=== PATIENT | female | born 1995 | race Caucasian/White ===

== ENCOUNTER 2017-04-06 10:53 | Emergency (ER) | payer BC ==
[~2017-04-06] VITALS: Ht 162.6 cm; Wt 53.0 kg
[~2017-04-06 10:53] MED LIST: AVIATAB PO; METR0.7512 VAGINAL
[2017-04-06 10:58] VITALS: BP 128/72; PULSE 76; RESP 16; TEMP 97.7; O2SAT 100
--- NOTE | 2017-04-06 11:28 | PD ---
HPI Chief Complaint: Injury Time Seen by Provider: 11:10 Travel History International Travel<30 days: No Contact w/Intl Traveler<30days: No Traveled to known affect area: No History of Present Illness HPI 22-year-old female presents to the emergency room for evaluation of right 3rd finger pain and swelling after injuring it last night. Patient was falling backwards and got her finger twisted underneath her. She does not remember bending it backwards. He reports immediate pain. She applied ice and then went to bed. Hopefully would be better in the morning but as symptoms persisted , she came to the emergency room. Denies paresthesias. Pain is localized to the right, third proximal phalanx. Worse with range of motion. Denies chronic medical conditions or daily medications. PFSH Past Medical History ADHD: No Weight (Kg): 3 Cancer: No Cardiovascular Problems: No Diabetes: No Diminished Hearing: No Headaches: Yes (OCCASIONAL HEADACHES) Musculoskeletal: Yes (R ARM FX) Psychiatric: Yes Immunizations Current: Yes Migraines: No Seizures: No Thyroid Disease: No Ulcer: No Tetanus Vaccination: Unknown ?: Not Past Surgical History Appendectomy: No Section: No Cholecystectomy: No Ear Surgery: Yes (TUBES) Other Surgery: Yes Social History Alcohol Use: No Tobacco Use: Yes (8 cigarettes per day) Substance Use: No Allergies-Medications (Allergen,Severity, Reaction): Coded Allergies: No Known Allergies (Verified , 04/06/17) Reported Meds & Prescriptions Reported Meds & Active Scripts Active No Active Prescriptions or Reported Medications Review of Systems Except as stated in HPI: all other systems reviewed are Neg Physical Exam Narrative GENERAL: Well-nourished, well-developed female in no acute distress. Afebrile. Ambulatory. SKIN: Focused skin assessment warm/dry. Moderate ecchymosis right third finger. HEAD: Normocephalic. EYES: No scleral icterus. No injection or drainage. NECK: Supple, trachea midline. No JVD or lymphadenopathy. CARDIOVASCULAR: Regular rate and rhythm without murmurs, gallops, or rubs. RESPIRATORY: Breath sounds equal bilaterally. No accessory muscle use. MUSCULOSKELETAL: No cyanosis. Moderate edema of the right third finger. Extreme tenderness to palpation especially over the proximal phalanx. Less than 2 second capillary refill distally. Full range of motion with moderate pain. Data Data Last Documented VS Vital Signs Date Time Temp Pulse Resp B/P Pulse Ox O2 Delivery O2 Flow Rate FiO2 04/06/17 10:58 97.7 76 16 128/72 100 Orders Finger ([id number]) (04/06/17 ) MDM Medical Decision Making Medical Screen Exam Complete: Yes Emergency Medical Condition: Yes Medical Record Reviewed: Yes Differential Diagnosis ike, fracture, strain, dislocation Narrative Course 22-year-old female presents to the emergency room for evaluation of right third finger pain and swelling after injuring it last night. Patient fell, landing on her finger while twisting it. Pain is localized to the proximal phalanx. Physical exam reveals moderate edema and ecchymosis right third finger. Less than 2 second capillary refill distally. X-ray shows middle phalanx fracture. Finger was alberto taped to the fourth digit and patient was discharged with orthopedic instructions. Told to follow up with primary care physician and/or hand surgeon. Told to return for worsening symptoms. She understands and agrees to plan. Diagnosis Primary Impression: Fracture of phalanx of right middle finger Qualified Code: S62.652A - Closed nondisplaced fracture of middle phalanx of right middle finger, initial encounter Referrals: Primary Care Physician Patient Instructions: Finger Fracture (ED), General Instructions Additional Instructions: Rest and drink plenty of fluids. Take ibuprofen with food as directed, as needed for pain. Keep finger alberto taped until follow-up. Elevate and apply ice to the affected area for 20 minutes at a time, as needed for pain and swelling. Follow-up with a primary care physician. Return to the emergency room for worsening symptoms. Med/Other Pt SpecificInfo: Prescription(s) given Scripts No Active Prescriptions or Reported Meds Disposition: 01 DISCHARGE HOME Condition: Stable Stephanie Contreras Apr 06, 2017 11:28
--- NOTE | 2017-04-06 12:25 | RADRPT ---
EXAM DATE/TIME: 04/06/2017 11:51 [facility] COMPARISON: No previous studies available for comparison. INDICATIONS : Fell, right middle finger pain and swelling MEDICAL HISTORY : None. SURGICAL HISTORY : None. ENCOUNTER: Initial ACUITY: 1 day PAIN SCORE: 8/10 LOCATION: Right 3rd finger FINDINGS: There is a complete fracture of the third middle phalanx without any significant angulation or displa cement. There is no intra-articular extension. CONCLUSION: Third middle phalangeal fracture. Verenice Gallardo MD on April 06, 2017 at 12:23 Board Certified Radiologist. This report was verified electronically.
== END 2017-04-06 12:21 | disposition home or self-care (01) ==
LOC: PHEFT 10:53
DX: S62.652A Nondisplaced fracture of middle phalanx of right middle finger, initial encounter for closed fracture (principal); Z72.0 Tobacco use; Z87.39 Personal history of other diseases of the musculoskeletal system and connective tissue; W18.39XA Other fall on same level, initial encounter
CPT/HCPCS: 29130; 73140

== ENCOUNTER 2017-12-10 03:36 | Emergency (ER) | payer BC, OTHER ==
[~2017-12-10] VITALS: Ht 162.6 cm; Wt 60.0 kg
[2017-12-10 03:39] VITALS: BP 119/63; PULSE 89; RESP 18; TEMP 97.7; O2SAT 100
--- NOTE | 2017-12-10 04:10 | PD ---
HPI Chief Complaint: Flank/Kidney Pain Time Seen by Provider: 03:53 Travel History International Travel<30 days: No Contact w/Intl Traveler<30days: No Traveled to known affect area: No History of Present Illness HPI The patient is a 22-year-old female that was arrested for battery with police and, before she was put in the [facility], she complained of right flank pain that is been going on for 2 months. The pain is sharp and a 7/10 in intensity. Muscle movements affect the pain. She smokes a pack and half a day and admits that she drinks too much. He says she drinks usually 2-- 6 packs a day, occasionally 1 sixpack a day of beer. PFSH Past Medical History ADHD: No Weight (Kg): 3 Cancer: No Cardiovascular Problems: No Diabetes: No Diminished Hearing: No Headaches: Yes (OCCASIONAL HEADACHES) Musculoskeletal: Yes (R ARM FX) Psychiatric: Yes Immunizations Current: Yes Migraines: No Seizures: No Thyroid Disease: No Ulcer: No ?: Unknown LMP: 12/08/17 Past Surgical History Appendectomy: No Section: No Cholecystectomy: No Ear Surgery: Yes (TUBES) Other Surgery: Yes Social History Alcohol Use: No Tobacco Use: Yes (8 cigarettes per day) Substance Use: No Allergies-Medications (Allergen,Severity, Reaction): Coded Allergies: No Known Allergies (Verified Allergy, Unknown, 12/10/17) Reported Meds & Prescriptions Reported Meds & Active Scripts Active No Active Prescriptions or Reported Medications Review of Systems Except as stated in HPI: all other systems reviewed are Neg Physical Exam Narrative GENERAL: The patient is alert, oriented 3, cooperative but does smell strongly of beer. She does not appear to be clinically intoxicated. Her vital signs are normal. SKIN: Focused skin assessment warm/dry. No needle tracks nor wrist slash banuelos are present. HEAD: Atraumatic. Normocephalic. EYES: Pupils equal and round. No scleral icterus. No injection or drainage. ENT: No nasal bleeding or discharge. Mucous membranes pink and moist. NECK: Trachea midline. No JVD. CARDIOVASCULAR: Regular rate and rhythm. No murmur appreciated. RESPIRATORY: No accessory muscle use. Clear to auscultation. Breath sounds equal bilaterally. GASTROINTESTINAL: Abdomen soft, with tenderness to direct palpation in the right flank posteriorly, nondistended. Hepatic and splenic margins not palpable. No guarding or rebound is present. Most of the tenderness appears to be around the right posterior ribs inferiorly. MUSCULOSKELETAL: No obvious deformities. No clubbing. No cyanosis. No edema. NEUROLOGICAL: Awake and alert. No obvious cranial nerve deficits. Motor grossly within normal limits. Normal speech. PSYCHIATRIC: Appropriate mood and affect; insight and judgment normal. Data Data Last Documented VS Vital Signs Date Time Temp Pulse Resp B/P (MAP) Pulse Ox O2 Delivery O2 Flow Rate FiO2 12/10/17 04:15 100 Room Air 12/10/17 03:39 97.7 89 18 119/63 (81) Orders Orders Beta Hcg (Quant/Titer) (12/10/17 04:02) Complete Blood Count With Diff (12/10/17 04:02) Comprehensive Metabolic Panel (12/10/17 04:02) Urinalysis - C+S If Indicated (12/10/17 04:02) Ct Abd/Pel W Iv Contrast(Rout) (12/10/17 04:02) Iv Access Insert/Monitor (12/10/17 04:02) Ecg Monitoring (12/10/17 04:02) Oximetry (12/10/17 04:02) Sodium Chloride 0.9% Flush (Ns Flush) (12/10/17 04:15) Alcohol (Ethanol) (12/10/17 04:10) Urine Culture (12/10/17 04:10) Ed Urine Pregnancytest Poc (12/10/17 04:40) Sodium Chlor 0.9% 1000 Ml Inj (Ns 1000 M (12/10/17 04:45) Iohexol 350 Inj (Omnipaque 350 Inj) (12/10/17 04:57) Labs Laboratory Tests Test 12/10/17 04:10 White Blood Count 11.8 TH/MM3 Red Blood Count 5.49 MIL/MM3 Hemoglobin 16.2 GM/DL Hematocrit 47.4 % Mean Corpuscular Volume 86.3 FL Mean Corpuscular Hemoglobin 29.5 PG Mean Corpuscular Hemoglobin Concent 34.2 % Red Cell Distribution Width 12.5 % Platelet Count 331 TH/MM3 Mean Platelet Volume 8.3 FL Neutrophils (%) (Auto) 62.4 % Lymphocytes (%) (Auto) 27.5 % Monocytes (%) (Auto) 5.3 % Eosinophils (%) (Auto) 2.9 % Basophils (%) (Auto) 1.9 % Neutrophils # (Auto) 7.5 TH/MM3 Lymphocytes # (Auto) 3.2 TH/MM3 Monocytes # (Auto) 0.6 TH/MM3 Eosinophils # (Auto) 0.3 TH/MM3 Basophils # (Auto) 0.2 TH/MM3 CBC Comment DIFF FINAL Differential Comment Urine Collection Type CLEAN CATCH Urine Color YELLOW Urine Turbidity CLEAR Urine pH 5.5 Urine Specific [place] 1.015 Urine Protein NEG mg/dL Urine Glucose (UA) NEG mg/dL Urine Ketones NEG mg/dL Urine Occult Blood TRACE Urine Nitrite NEG Urine Bilirubin NEG Urine Urobilinogen 0.2 MG/DL Urine Leukocyte Esterase NEG Urine WBC 3-5 /hpf Urine WBC Clumps OCC Urine Squamous Epithelial Cells 0-5 /hpf Urine Bacteria RARE /hpf Urine Mucus FEW /lpf Microscopic Urinalysis Comment CULTURE INDICATED Blood Urea Nitrogen 9 MG/DL Creatinine 0.92 MG/DL Random Glucose 90 MG/DL Total Protein 9.2 GM/DL Albumin 4.2 GM/DL Calcium Level 8.8 MG/DL Alkaline Phosphatase 107 U/L Aspartate Amino Transf (AST/SGOT) 23 U/L Alanine Aminotransferase (ALT/SGPT) 23 U/L Total Bilirubin 0.2 MG/DL Sodium Level 141 MEQ/L Potassium Level 4.1 MEQ/L Chloride Level 106 MEQ/L Carbon Dioxide Level 26.2 MEQ/L Anion Gap 9 MEQ/L Estimat Glomerular Filtration Rate 77 ML/MIN Human Chorionic Gonadotropin, Quant LESS THAN 1 MIU/ML Ethyl Alcohol Level 89 MG/DL MDM Medical Decision Making Medical Screen Exam Complete: Yes Emergency Medical Condition: Yes Medical Record Reviewed: Yes Interpretation(s) The complete metabolic profile shows a GFR of 77, total protein of 9.2 but is otherwise unremarkable. The beta-hCG is less than 1 and the alcohol level is 89. The CBC shows a white count of 11,800 with a hemoglobin of 16.2 and hematocrit of 47.4 but is otherwise unremarkable. The urinalysis shows rare bacteria, occasional white cell clumping and culture is indicated. The CT abdomen/pelvis with IV contrast shows no acute inflammatory process and a normal appendix. Differential Diagnosis Urinary stone, pyelonephritis, musculoskeletal pain, alcohol intoxication/abuse Narrative Course The patient likely has musculoskeletal pain. It is reproducible by pressing on the ribs on the right posteriorly. She will be given Motrin 600 mg 3 times daily and is given a shot of Toradol here. Diagnosis Primary Impression: Musculoskeletal pain Additional Impression: Alcohol abuse Additional Instructions: As we discussed, take the Motrin regularly, 1 tablet 3 times daily. Discontinue alcohol and use [facility] if you have difficulty discontinuing alcohol. Med/Other Pt SpecificInfo: Prescription(s) given Scripts Ibuprofen (Ibuprofen) 600 Mg Tab 600 MG PO TID, #33 TAB 0 Refills Prov: Louis Ortiz MD 12/10/17 Disposition: DISCHARGE HOME Condition: Stable Louis Ortiz MD Dec 10, 2017 04:10
[2017-12-10 04:15] VITALS: O2SAT 100
[2017-12-10] MEDS ORDERED: SODIUM CHLORIDE 0.9% FLUSH 10 ML FLUSH IV FLUSH PRN (04:15)
[2017-12-10 04:20] LABS: AUTOMATED NEUTROPHIL # 7.5 TH/MM3 (1.8-7.7); BASOPHIL # 0.2 TH/MM3 (0-0.2); BASOPHIL % 1.9 % (0.0-2.0); EOSINOPHIL # 0.3 TH/MM3 (0-0.4); EOSINOPHIL % 2.9 % (0.0-4.0); HEMATOCRIT 47.4 % (35.0-46.0); HEMOGLOBIN 16.2 GM/DL (11.6-15.3); LYMPH % 27.5 % (9.0-44.0); LYMPHOCYTE # 3.2 TH/MM3 (1.0-4.8); MEAN CELL VOLUME 86.3 FL (80.0-100.0); MEAN CORPUSCULAR HEMOGLOBIN 29.5 PG (27.0-34.0); MEAN CORPUSCULAR HGB CONC 34.2 % (32.0-36.0); MEAN PLATELET VOLUME 8.3 FL (7.0-11.0); MONO % 5.3 % (0.0-8.0); MONOCYTE # 0.6 TH/MM3 (0-0.9); NEUT % 62.4 % (16.0-70.0); PLATELET COUNT 331 TH/MM3 (150-450); RED BLOOD COUNT 5.49 MIL/MM3 (4.00-5.30); RED CELL DISTRIBUTION WIDTH 12.5 % (11.6-17.2); WHITE BLOOD COUNT 11.8 TH/MM3 (4.0-11.0)
[2017-12-10 04:27] LABS: BILIRUBIN, URINE NEG (NEG); BLOOD, URINE TRACE (NEG); GLUCOSE,URINE NEG (NEG); KETONE, URINE NEG (NEG); NITRITE,URINE NEG (NEG); PH, URINE 5.5 (5.0-8.5); URINE COLOR YELLOW (YELLW/STRAW); URINE LEUKOCYTE ESTERASE NEG (NEG)
[2017-12-10 04:30] LABS: CHLORIDE 106 MEQ/L (98-107); SODIUM (NA) 141 MEQ/L (136-145)
[2017-12-10 04:32] LABS: MUCUS URINE FEW /lpf (OCC); SQUAMOUS EPITHELIAL CELL URINE 0-5 /hpf (0-5)
[2017-12-10 04:33] LABS: BACTERIA, URINE RARE /hpf; CALCIUM 8.8 MG/DL (8.5-10.1); WHITE BLOOD CELL CLUMPS OCC
[2017-12-10 04:34] LABS: ALBUMIN 4.2 GM/DL (3.4-5.0); BICARBONATE 26.2 MEQ/L (21.0-32.0); BLOOD UREA NITROGEN 9 MG/DL (7-18); GLUCOSE,RANDOM 90 MG/DL (74-106)
[2017-12-10 04:37] LABS: ALT (GPT) 23 U/L (10-53); AST (GOT) 23 U/L (15-37); CREATININE 0.92 MG/DL (0.50-1.00); GLOMERULAR FILTRATION RATE 77 ML/MIN (>89)
[2017-12-10 04:38] LABS: TOTAL BILIRUBIN ADULT 0.2 MG/DL (0.2-1.0); TOTAL PROTEIN 9.2 GM/DL (6.4-8.2)
[2017-12-10 04:40] LABS: ALKALINE PHOSPHATASE 107 U/L (45-117)
[2017-12-10] MEDS: SODIUM CHLOR 0.9% 1000 ML INJ 1,000 ML IV SCH (04:55)
[2017-12-10] MEDS ORDERED: IOHEXOL 350 MG/ML 10 ML VIAL (for RAD DIAG) IVCONTRAST ONE (04:57)
--- NOTE | 2017-12-10 05:22 | RADRPT ---
EXAM DATE/TIME: 12/10/2017 04:43 [facility] COMPARISON: No previous studies available for comparison. INDICATIONS : Right flank pain. IV CONTRAST: 100 cc Omnipaque 350 (iohexol) IV ORAL CONTRAST: No oral contrast ingested. RADIATION DOSE: 5.06 CTDIvol (mGy) MEDICAL HISTORY : None SURGICAL HISTORY : None. ENCOUNTER: Initial ACUITY: 1 day PAIN SCALE: 7/10 LOCATION: Right flank TECHNIQUE: Volumetric scanning of the abdomen and pelvis was performed. Using automated exposure control and ad justment of the mA and/or kV according to patient size, radiation dose was kept as low as reasonably achievable to obtain optimal diagnostic quality images. DICOM format image data is available electro nically for review and comparison. FINDINGS: LOWER LUNGS: The visualized lower lungs are clear. LIVER: Homogeneous density without lesion. There is no dilation of the biliary tree. No calcified gallston es. SPLEEN: Normal size without lesion. PANCREAS: Within normal limits. KIDNEYS: Normal in size and shape. There is no mass, stone or hydronephrosis. ADRENAL GLANDS: Within normal limits. VASCULAR: There is no aortic aneurysm. BOWEL/MESENTERY: The stomach, small bowel, and colon demonstrate no acute abnormality. There is no free intraperitone al air or fluid. Normal appendix. ABDOMINAL WALL: Within normal limits. RETROPERITONEUM: There is no lymphadenopathy. BLADDER: No wall thickening or mass. REPRODUCTIVE: Within normal limits. INGUINAL: There is no lymphadenopathy or hernia. MUSCULOSKELETAL: Within normal limits for patient age. CONCLUSION: No acute inflammatory process. Normal appendix. Andrey Ponce MD on December 10, 2017 at 5:19 Board Certified Radiologist. This report was verified electronically.
[2017-12-10] MEDS ORDERED: IBUP-232 PO (05:35)
[2017-12-10] MEDS ORDERED: KETOROLAC TROMETHAMINE 60 MG/2 ML (IM) VIAL IVP ONE (05:45)
[2017-12-10 05:52] VITALS: BP 120/62
== END 2017-12-10 05:56 | disposition home or self-care (01) ==
LOC: PHED 03:36
DX: M79.1 Myalgia (principal); F10.10 Alcohol abuse, uncomplicated; R10.9 Unspecified abdominal pain; F17.210 Nicotine dependence, cigarettes, uncomplicated
CPT/HCPCS: 74177; 80053; 80307; 81001; 84702; 84703; 85025; 87086; 96361; 96374; 99284; J1885; J7030; Q9967